=== PATIENT | female | born 1980 ===

== ENCOUNTER 2025-01-27 09:53 | Day surgery (SDC) | payer BC ==
[2025-01-26 08:31] VITALS: BMI 34.7
[2025-01-27] MEDS: LACTATED RINGERS 1,000 ML IV ONE (10:13)
[2025-01-27 10:26] VITALS: RESP 16; TEMP 98.8
[2025-01-27] MEDS: LACTATED RINGERS 1,000 ML IV SCH (10:37)
[2025-01-27] MEDS ORDERED: PROPOFOL 10 MG/ML 20 ML VIAL IV ONE (11:24)
--- NOTE | 2025-01-27 11:36 | P.PCN ---
Date of Procedure: 01/27/25 Procedure(s) Performed: BRIEF HISTORY: Patient is a 44-year-old pleasant white female scheduled for an elective colonoscopy as a part of evaluation of change in bowel habits for the last several months duration. PROCEDURE PERFORMED: Colonoscopy. PREOPERATIVE DIAGNOSIS: Change in bowel habits. IV sedation per Anesthesia. PROCEDURE: After informed consent was obtained, the patient, was brought into the endoscopy unit. IV sedation was administered by Anesthesia under continuous monitoring. Digital rectal examination was normal. Initially the Olympus CF-160 flexible video colonoscope was then inserted in the rectum, gradually advanced into the cecum without any difficulty. Careful examination was performed as the scope was gradually being withdrawn. Ileocecal valve and the appendiceal orifice were visualized and appeared normal. Prep was excellent. Mucosa of the cecum, ascending colon, transverse colon, descending colon, sigmoid colon, and rectum appeared normal. Retroflexion was performed in the rectum and no lesions were seen. The patient tolerated the procedure well. IMPRESSION: Normal-appearing colon from rectum to cecum with no evidence of colorectal neoplasia. RECOMMENDATIONS: Findings of this examination were discussed with the patient as well as her family. She was advised to start on high-fiber diet and take fiber supplements on a regular basis. Recommend repeat screening colonoscopy in 10 years..
[2025-01-27 11:46] VITALS: PULSE 64
[2025-01-27 11:53] VITALS: BP 123/74
== END 2025-01-27 12:07 | disposition home or self-care (01) ==
LOC: ORWHC2ENDO 09:53
PROVIDERS: ATTEND Internal Medicine Gastroenterology
DX: R19.4 Change in bowel habit (principal)
CPT/HCPCS: 81025; 45378; J2704